=== PATIENT | female | born 1975 | race Caucasian/White ===

== ENCOUNTER 2016-05-07 15:02 | Emergency (ER) | payer OTHER ==
[2016-05-07 15:17] VITALS: TEMP 97.6; BMI 27.6
[2016-05-07] MEDS ORDERED: SODIUM CHLORIDE 0.9% 10 ML FLUSH FLUSH PRN (15:45)
[2016-05-07] MEDS ORDERED: HYDROmorphone 1 MG INJECTION IV ONE ×3 (15:45→16:30)
[2016-05-07] MEDS ORDERED: ONDANSETRON HCL 4 MG/2 ML VIAL IV ONE ×2 (15:45→17:37)
[2016-05-07] MEDS ORDERED: NS 1,000 ML IV ONE (15:46)
[2016-05-07 15:53] LABS: AUTOMATED BASOPHIL 0.4 % (0-2); AUTOMATED EOSINOPHIL 0.5 % (0-5); AUTOMATED LYMPH 14.2 % (17-44); AUTOMATED MONOCYTE 5.5 % (3-10); AUTOMATED NEUTROPHIL 79.4 % (45-76); MPV 9.9 fL (7.4-10.4)
[2016-05-07 16:06] LABS: PARTIAL THROMB. TIME 24.3 SEC (22-35)
[2016-05-07 16:09] LABS: BLOOD UREA NITROGEN 14 MG/DL (7-17); CALCIUM 9.7 MG/DL (8.4-10.2); CALCULATED OSMOLALITY 274 MOs/Kg (270-290); CHLORIDE 104 mEq/L (98-107); GLUCOSE 105 MG/DL (70-99); SODIUM LEVEL 142 mEq/L (137-146); TOTAL PROTEIN 7.8 G/DL (6.3-8.2)
--- NOTE | 2016-05-07 16:14 | EDPRACDOC ---
- General Information Information Source: Patient Mode Of Arrival: Car - History of Present Illness Onset: 3 HOURS Pain Location: Reports: Epigastric, RUQ Pain Context: Reports: After Eating Pain Severity: Severe Pain Quality: Reports: Sharp, Stabbing Pain Radiation: Reports: No Radiation Last Menstrual Period: 2 WEEKS : No Modifying Factors: improves with: Nothing Female Associated Signs & Symptoms: Reports: Nausea <Reanna Godinez - Last Filed: 05/07/16 17:08> <Peyton Mann - Last Filed: 05/07/16 20:27> - General Information Chief Complaint: Abdominal Pain Stated Complaint: ABDOMINAL PAIN Time Seen by Provider: 05/07/16 15:22 Home Medications: Home Medications Hydrocodone Bit/Acetaminophen [Hydrocodon-Acetaminophen 5-325] 1 - 2 tab PO Q6H PRN #20 tab 05/07/16 Multivitamin [One Daily Essential] 1 tab PO DAILY 05/07/16 Ondansetron HCl [Zofran] 4 mg PO TID PRN #14 tablet 05/07/16 Allergies/Adverse Reactions: Allergies Allergy/AdvReac Type Severity Reaction Status Date / Time Penicillins Allergy See Verified 05/07/16 15:18 Comments - History of Present Illness HPI: PT PRESENTS TODAY WITH EPIGASTRIC/RUQ PAIN THAT BEGAN AFTER EATING 1 HOUR AGO. PT STATES PAIN IS SEVERE, RADIATING INTO HER BACK WITH ASSOCIATED NAUSEA. DENIES FEVER, VOMITING/DIARRHEA, CP, SHOB. PT CURRENTLY SCREAMING IN PAIN. PMH OF APPENDECTOMY/. NO OTHER PERTINENT PMH/MEDS. (Reanna Godinez) ED Past Medical History - History Reviewed Yes Nurses notes reviewed and agree except as marked - Patient Medical History Psychological History: Denies: Depression Surgical History: Reports: Appendectomy - Social Medical History Smoking Status: Heavy tobacco smoker (5 or more cigarettes/day or daily pipe/ cigar) <Reanna Godinez - Last Filed: 05/07/16 17:08> EDM Review of Systems - Review of Systems ROS Negative Except as Marked: Yes All systems reviewed and were negative except as marked Constitutional: No Symptoms Reported Respiratory: No Symptoms Reported Cardiovascular: No Symptoms Reported Gastrointestinal: Nausea, Pain Genitourinary: No Symptoms Reported Neurological: No Symptoms Reported Musculoskeletal: No Symptoms Reported Integumentary: No Symptoms Reported <Reanna Godinez - Last Filed: 05/07/16 17:08> - Physical Exam Constitutional: Alert, Distress Oriented to: Time, Person, Place - HEENT Head: Normal Eye Exam: Normal Neck: Normal, Denies Pain, Midline - Respiratory/Cardiovascular Respiratory: Normal - CTA Cardiovascular: Normal - GI Auscultation: Normal Palpation: Normal Tenderness: Severe, RUQ Rodriguez's Sign: Positive - Musculoskeletal Back: Normal Extremities: Normal - Integumentary Skin: Normal Lymphatics: Normal - Neurologic Cerebellar: Unable to Test Mood Description: Appropriate <Reanna Godinez - Last Filed: 05/07/16 17:08> - Results 05/07/16 15:28 05/07/16 15:28 - EKG EKG #1 EKG Time: 16:02 -: Yes EKG interpreted by me Rate: bpm: 80 [place]lass: Normal Rhythm: NSR Block: None Hypertrophy: None ST: Normal <Reanna Godinez - Last Filed: 05/07/16 17:08> - Re-evaluation Re-evaluation 3 Re-evaluation Time: 20:21 (PAIN MUCH IMPROVED, COMFORTABLE. ) - Results 05/07/16 15:28 05/07/16 15:28 - Diagnostic Imaging Abdomen Image interpreted by: , Radiologist <Peyton Mann - Last Filed: 05/07/16 20:27> - Re-evaluation Re-evaluation 3 GIVEN NO FEVER, NO SIGNIF LEUKOCYTOSIS, NO ABX WARRANTED. WILL TREAT SYMPTOMATICALLY AND F/U GI. (Peyton Mann) - Results WBC 12.1 xk/uL (3.8-10.8) H 05/07/16 15:28 RBC 4.82 xM/uL (4.20-5.40) 05/07/16 15:28 Hgb 14.4 g/dL (12.0-16.0) 05/07/16 15: Hct 43.5 % (36-47) 05/07/16 15: MCV 90 fL (81-99) 05/07/16 15: MCH 30.0 pg (27-32) 05/07/16 15: MCHC 33.2 g/dl (33-36) 05/07/16 15: RDW 13.6 % (11.5-14.5) 05/07/16 15: Plt Count 262 xk/uL (130-400) 05/07/16 15: MPV 9.9 fL (7.4-10.4) 05/07/16 15:28 Neut % (Auto) 79.4 % (45-76) H 05/07/16 15: Lymph % (Auto) 14.2 % (17-44) L 05/07/16: [place] % (Auto) 5.5 % (3-10) 05/07/16: Eos % (Auto) 0.5 % (0-5) 05/07/16: Baso % (Auto) 0.4 % (0-2) 05/07/16: Absolute Neuts (auto) 9.56 xk/uL (1.7-8.2) H 05/07/16 15: Absolute Lymphs (auto) 1.69 xk/uL (0.65-4.75) 05/07/16 15: PT 10.5 SEC (9.2-11.2) 05/07/16 15: INR 1.0 05/07/16 15: APTT 24.3 SEC (22-35) 05/07/16 15: Sodium 142 mEq/L (137-146) 05/07/16 15: Potassium 3.4 mEq/L (3.5-5.1) L 05/07/16 15: Chloride 104 mEq/L (98-107) 05/07/16 15: Carbon Dioxide 24 mMOL/L (22-33) 05/07/16 15: Anion Gap 17 mEq/L (8-16) H 05/07/16 15: BUN 14 MG/DL (7-17) 05/07/16 15: Creatinine 1.00 MG/DL (0.52-1.04) 05/07/16 15: Estimated GFR (MDRD) > 60 mL/min (>=60) 05/07/16 15: Glucose 105 MG/DL (70-99) H 05/07/16 15: Calculated Osmolality 274 MOs/Kg (270-290) 05/07/16 15: Calcium 9.7 MG/DL (8.4-10.2) 05/07/16 15:28 Total Bilirubin 0.6 MG/DL (0.2-1.3) 05/07/16 15:28 AST 30 IU/L (14-36) 05/07/16 15:28 ALT 34 IU/L (9-52) 05/07/16 15:28 Alkaline Phosphatase 103 IU/L (38-126) 05/07/16 15:28 Troponin I < 0.01 ng/mL (<.04) 05/07/16 19:19 Total Protein 7.8 G/DL (6.3-8.2) 05/07/16 15:28 Albumin 4.7 G/DL (3.5-5.0) 05/07/16 15:28 Lipase 56 U/L (23-300) 05/07/16 15:28 Urine Color Pale yell0w 05/07/16 15:31 Urine Clarity Clear 05/07/16 15:31 Urine pH 7.0 (5.0-8.0) 05/07/16 15:31 Ur Specific [place] </=1.005 05/07/16 15:31 Urine Protein Neg (NEG/TRACE) 05/07/16 15:31 Urine Glucose (UA) Neg (NEGATIVE) 05/07/16 15:31 Urine Ketones Neg (NEGATIVE) 05/07/16 15:31 Urine Occult Blood Neg (NEG/TRACE) 05/07/16 15:31 Urine Nitrite Neg (NEGATIVE) 05/07/16 15:31 Urine Bilirubin Neg (NEGATIVE) 05/07/16 15:31 Urine Urobilinogen 0.2 MG/DL (0-1) 05/07/16 15:31 Ur Leukocyte Esterase Neg (NEGATIVE) 05/07/16 15:31 Urine RBC 0-2 (0-5) 05/07/16 15:31 Urine WBC 0-2 (0-5) 05/07/16 15:31 Ur Epithelial Cells Occ 05/07/16 15:31 Urine Bacteria Few (NEG/FEW) 05/07/16 15:31 Urine Test Neg (NEGATIVE) 05/07/16 15:31 Urine Opiates Screen Neg (NEGATIVE) 05/07/16 15:31 Ur Oxycodone Screen Neg (NEGATIVE) 05/07/16 15:31 Urine Methadone Screen Neg (NEGATIVE) 05/07/16 15:31 Ur Barbiturates Screen Neg (NEGATIVE) 05/07/16 15:31 Ur Tricyclics Screen Neg (NEGATIVE) 05/07/16 15:31 Ur Phencyclidine Scrn Neg (NEGATIVE) 05/07/16 15:31 Ur Amphetamines Screen Neg (NEGATIVE) 05/07/16 15:31 U Methamphetamines Scrn Neg (NEGATIVE) 05/07/16 15:31 Urine MDMA Screen Neg (NEGATIVE) 05/07/16 15:31 U Benzodiazepines Scrn Neg (NEGATIVE) 05/07/16 15:31 Urine Cocaine Screen Neg (NEGATIVE) 05/07/16 15:31 Ur THC Screen Neg (NEGATIVE) 05/07/16 15:31 Lab Results 05/07/16 05/07/16 05/07/16 19:19 15:31 15:31 WBC RBC Hgb Hct MCV MCH MCHC RDW Plt Count MPV Neut % (Auto) Lymph % (Auto) [place] % (Auto) Eos % (Auto) Baso % (Auto) Absolute Neuts (auto) Absolute Lymphs (auto) PT INR APTT Sodium Potassium Chloride Carbon Dioxide Anion Gap BUN Creatinine Estimated GFR (MDRD) Glucose Calculated Osmolality Calcium Total Bilirubin AST ALT Alkaline Phosphatase Troponin I < 0.01 Total Protein Albumin Lipase Urine Color Pale yell0w Urine Clarity Clear Urine pH 7.0 Ur Specific [place] </=1.005 Urine Protein Neg Urine Glucose (UA) Neg Urine Ketones Neg Urine Occult Blood Neg Urine Nitrite Neg Urine Bilirubin Neg Urine Urobilinogen 0.2 Ur Leukocyte Esterase Neg Urine RBC 0-2 Urine WBC 0-2 Ur Epithelial Cells Occ Urine Bacteria Few Urine Test Neg Urine Opiates Screen Ur Oxycodone Screen Urine Methadone Screen Ur Barbiturates Screen Ur Tricyclics Screen Ur Phencyclidine Scrn Ur Amphetamines Screen U Methamphetamines Scrn Urine MDMA Screen U Benzodiazepines Scrn Urine Cocaine Screen Ur THC Screen 05/07/16 05/07/16 05/07/16 15:31 15:28 15:28 WBC 12.1 H RBC 4.82 Hgb 14.4 Hct 43.5 MCV 90 MCH 30.0 MCHC 33.2 RDW 13.6 Plt Count 262 MPV 9.9 Neut % (Auto) 79.4 H Lymph % (Auto) 14.2 L [place] % (Auto) 5.5 Eos % (Auto) 0.5 Baso % (Auto) 0.4 Absolute Neuts (auto) 9.56 H Absolute Lymphs (auto) 1.69 PT 10.5 INR 1.0 APTT 24.3 Sodium Potassium Chloride Carbon Dioxide Anion Gap BUN Creatinine Estimated GFR (MDRD) Glucose Calculated Osmolality Calcium Total Bilirubin AST ALT Alkaline Phosphatase Troponin I Total Protein Albumin Lipase Urine Color Urine Clarity Urine pH Ur Specific [place] Urine Protein Urine Glucose (UA) Urine Ketones Urine Occult Blood Urine Nitrite Urine Bilirubin Urine Urobilinogen Ur Leukocyte Esterase Urine RBC Urine WBC Ur Epithelial Cells Urine Bacteria Urine Test Urine Opiates Screen Neg Ur Oxycodone Screen Neg Urine Methadone Screen Neg Ur Barbiturates Screen Neg Ur Tricyclics Screen Neg Ur Phencyclidine Scrn Neg Ur Amphetamines Screen Neg U Methamphetamines Scrn Neg Urine MDMA Screen Neg U Benzodiazepines Scrn Neg Urine Cocaine Screen Neg Ur THC Screen Neg 05/07/16 15:28 WBC RBC Hgb Hct MCV MCH MCHC RDW Plt Count MPV Neut % (Auto) Lymph % (Auto) [place] % (Auto) Eos % (Auto) Baso % (Auto) Absolute Neuts (auto) Absolute Lymphs (auto) PT INR APTT Sodium 142 Potassium 3.4 L Chloride 104 Carbon Dioxide 24 Anion Gap 17 H BUN 14 Creatinine 1.00 Estimated GFR (MDRD) > 60 Glucose 105 H Calculated Osmolality 274 Calcium 9.7 Total Bilirubin 0.6 AST 30 ALT 34 Alkaline Phosphatase 103 Troponin I < 0.01 Total Protein 7.8 Albumin 4.7 Lipase 56 Urine Color Urine Clarity Urine pH Ur Specific [place] Urine Protein Urine Glucose (UA) Urine Ketones Urine Occult Blood Urine Nitrite Urine Bilirubin Urine Urobilinogen Ur Leukocyte Esterase Urine RBC Urine WBC Ur Epithelial Cells Urine Bacteria Urine Test Urine Opiates Screen Ur Oxycodone Screen Urine Methadone Screen Ur Barbiturates Screen Ur Tricyclics Screen Ur Phencyclidine Scrn Ur Amphetamines Screen U Methamphetamines Scrn Urine MDMA Screen U Benzodiazepines Scrn Urine Cocaine Screen Ur THC Screen (Reanna Godinez) (Peyton Mann) - Diagnostic Imaging Abdomen 05/07/16 19:55 Patient Name: HEIKE DEE LOC: ED : 1975 AGE: 40 Order Date:05/07/16 Date of Service: Report # [id number] Ord Physician: Reanna Godinez Exam # [id number] Emergency Physician: Peyton Mann MD Exam(s): [id number] CT/CT ANGIO [id number] CLINICAL DATA: Abdominal and epigastric pain for 1 day EXAM: CT ANGIOGRAPHY CHEST, ABDOMEN AND PELVIS TECHNIQUE: Multidetector CT imaging through the chest, abdomen and pelvis was performed using the standard protocol during bolus administration of intravenous contrast. Multiplanar reconstructed images and MIPs were obtained and reviewed to evaluate the vascular anatomy. CONTRAST: 100 mL Isovue 370. COMPARISON: None. FINDINGS: CTA CHEST FINDINGS The lungs are well aerated bilaterally. Mild dependent atelectatic changes are noted. The thoracic inlet is within normal limits. A bovine aortic arch is noted. No signs to suggest aneurysmal dilatation or dissection are noted. The pulmonary artery is visualize is within normal limits although timing was for arterial phase as opposed to pulmonary arterial phase. No hilar or mediastinal adenopathy is noted. No acute bony abnormality noted. Review of the MIP images confirms the above findings. CTA ABDOMEN AND PELVIS FINDINGS The liver, gallbladder, spleen, adrenal glands and pancreas are all normal in their CT appearance. The kidneys are well visualized bilaterally and reveal no renal calculi or obstructive changes. There are multiple mildly dilated loops of small bowel identified in the distal ileum with wall thickening and edema hyperemia of the mucosa is noted as well. A long segment of relative narrowing is seen just proximal to the terminal ileum. Some surrounding fluid is noted as well. Multiple likely reactive mesenteric lymph nodes are seen. These changes suggest inflammatory bowel disease. No colonic involvement is identified. The abdominal aorta shows a normal branching pattern. No aneurysmal dilatation or dissection is noted. No findings to suggest mesenteric ischemia are seen. The appendix is not visualize consistent with a prior surgical history. The bladder is partially distended. No pelvic mass lesion is noted. No bony abnormality is seen. Review of the MIP images confirms the above findings. IMPRESSION: No evidence of dissection or aneurysmal dilatation. Changes in the mid to distal ileum suggestive of inflammatory bowel disease. No perforation or definitive fistulization is noted. Some mild reactive lymphadenopathy is seen. Electronically Signed By: Gael Bruno M.D. On: 05/07/2016 19:22 Electronically Signed By: Gael Bruno MD Electronically Signed Date/Time: Dictate Date/Time: 05/07/161913 Technologist: Pooja Garcia Transcribed By: Brianne Transcribed Date/Time: 05/07/16192105/07/16 19:55 Patient Name: HEIKE DEE LOC: ED : 1975 AGE: 40 Order Date:05/07/16 Date of Service: Report # [id number] Ord Physician: Reanna Godinez Exam # [id number] Emergency Physician: Peyton Mann MD Exam(s): [id number] US/US GALLBLADDER-BILIARY (RUQ) CLINICAL DATA: RIGHT upper quadrant pain with nausea and vomiting. EXAM: US ABDOMEN LIMITED - RIGHT UPPER QUADRANT COMPARISON: None. FINDINGS: Gallbladder: No gallstones or wall thickening visualized. No sonographic Rodriguez sign noted by surveying technician. Common bile duct: Diameter: Within normal limits at 3 mm Liver: No focal lesion identified. Within normal limits in parenchymal echogenicity. IMPRESSION: Normal RIGHT upper quadrant ultrasound. Electronically Signed By: Osvaldo Pickering M.D. On: 05/07/2016 18:20 Electronically Signed By: Yariel Pickering MD Electronically Signed Date/Time: Dictate Date/Time: 05/07/169 Technologist: Devi Garcia Transcribed By: Brianne Transcribed Date/Time: 05/07/16 1820 (Peyton Mann) <Reanna Godinez - Last Filed: 05/07/16 17:08> - Departure Disposition: Home Education/Counseling Given To: Patient, Family Member Education/Counseling Given Regarding: Diagnosis, Treatment - Physician Consulted GI Time Called: 20:26 (PHONE CONVERSATION ONLY) Provider Called: Dylon Carrero Time Cut Off Sawyer Returned Call: 20:26 (STOOL STUDIES, GIADIA ANTIGEN, BENTYL) <Peyton Mann - Last Filed: 05/07/16 20:27> - Departure Condition: Stable Final Diagnosis: Ileitis, terminal, Abdominal pain Instructions: Acute Abdominal Pain (ED), Enteritis (ED) Referrals: Dylon Carrero MD [Staff Physician] - One Week Andi Montana MD [Staff Physician] - One Week Prescriptions: Hydrocodone Bit/Acetaminophen [Hydrocodon-Acetaminophen 5-325] 1 - 2 tab PO Q6H PRN #20 tab PRN Reason: Pain Ondansetron HCl [Zofran] 4 mg PO TID PRN #14 tablet PRN Reason: NAUSEA OR VOMITING Additional Instructions: Return to the Emergency Department for worse or different abdominal problems, especially in the next 12 - 24 hours. The test today did not determine the cause of your pain.. LIGHT DIET, SOUPS,
[2016-05-07 16:28] LABS: ALL NEG? YES; MDMA* NEG (NEGATIVE); METHAMPHETAMINES NEG (NEGATIVE); OXYCODONE NEG (NEGATIVE)
[2016-05-07 16:40] LABS: LEUKOCYTES/URINE NEG (NEGATIVE); NITRITE/URINE NEG (NEGATIVE); URINE OCCULT BLOOD NEG (NEG/TRACE)
--- NOTE | 2016-05-07 16:46 | DIRPT ---
CLINICAL DATA: Severe chest and epigastric pain beginning earlier today. Nausea. EXAM: PORTABLE CHEST 1 VIEW COMPARISON: None. FINDINGS: The heart size and mediastinal contours are within normal limits. Both lungs are clear. No evidence of pneumothorax or pleural effusion. IMPRESSION: No active disease. Electronically Signed By: Yariel Sunshine M.D. On: 05/07/2016 16:43
[2016-05-07 16:52] LABS: RBC/URINE 0-2 (0-5); WBC/URINE 0-2 (0-5)
--- NOTE | 2016-05-07 18:23 | DIRPT ---
CLINICAL DATA: RIGHT upper quadrant pain with nausea and vomiting. EXAM: US ABDOMEN LIMITED - RIGHT UPPER QUADRANT COMPARISON: None. FINDINGS: Gallbladder: No gallstones or wall thickening visualized. No sonographic Rodriguez sign noted by quill machine tender. Common bile duct: Diameter: Within normal limits at 3 mm Liver: No focal lesion identified. Within normal limits in parenchymal echogenicity. IMPRESSION: Normal RIGHT upper quadrant ultrasound. Electronically Signed By: Osvaldo Pickering M.D. On: 05/07/2016 18:20
[2016-05-07] MEDS ORDERED: PROMETHAZINE 25 MG/ML VIAL IV ONE (18:24)
[2016-05-07] MEDS ORDERED: Pharmacy Review for Metformin - IV Contrast Given SCH (19:00)
--- NOTE | 2016-05-07 19:25 | DIRPT ---
CLINICAL DATA: Abdominal and epigastric pain for 1 day EXAM: CT ANGIOGRAPHY CHEST, ABDOMEN AND PELVIS TECHNIQUE: Multidetector CT imaging through the chest, abdomen and pelvis was performed using the standard protocol during bolus administration of intravenous contrast. Multiplanar reconstructed images and MIPs were obtained and reviewed to evaluate the vascular anatomy. CONTRAST: 100 mL Isovue 370. COMPARISON: None. FINDINGS: CTA CHEST FINDINGS The lungs are well aerated bilaterally. Mild dependent atelectatic changes are noted. The thoracic inlet is within normal limits. A bovine aortic arch is noted. No signs to suggest aneurysmal dilatation or dissection are noted. The pulmonary artery is visualize is within normal limits although timing was for arterial phase as opposed to pulmonary arterial phase. No hilar or mediastinal adenopathy is noted. No acute bony abnormality noted. Review of the MIP images confirms the above findings. CTA ABDOMEN AND PELVIS FINDINGS The liver, gallbladder, spleen, adrenal glands and pancreas are all normal in their CT appearance. The kidneys are well visualized bilaterally and reveal no renal calculi or obstructive changes. There are multiple mildly dilated loops of small bowel identified in the distal ileum with wall thickening and edema hyperemia of the mucosa is noted as well. A long segment of relative narrowing is seen just proximal to the terminal ileum. Some surrounding fluid is noted as well. Multiple likely reactive mesenteric lymph nodes are seen. These changes suggest inflammatory bowel disease. No colonic involvement is identified. The abdominal aorta shows a normal branching pattern. No aneurysmal dilatation or dissection is noted. No findings to suggest mesenteric ischemia are seen. The appendix is not visualize consistent with a prior surgical history. The bladder is partially distended. No pelvic mass lesion is noted. No bony abnormality is seen. Review of the MIP images confirms the above findings. IMPRESSION: No evidence of dissection or aneurysmal dilatation. Changes in the mid to distal ileum suggestive of inflammatory bowel disease. No perforation or definitive fistulization is noted. Some mild reactive lymphadenopathy is seen. Electronically Signed By: Gael Bruno M.D. On: 05/07/2016 19:22
[2016-05-07 21:32] VITALS: BP 120/67; PULSE 92
== END 2016-05-07 21:06 | disposition home or self-care (01) ==
LOC: ED 15:02
DX: K50.00 Crohn's disease of small intestine without complications (principal)
CPT/HCPCS: 36415; 71010; 71275; 74174; 76705; 80053; 80307; 81001; 81025; 83690; 84484; 85025; 85610; 85730; 93005; 96361; 96374; 96375; 96376; 99285; A9698; J1170; J2405; J2550